=== PATIENT | male | born 1970 | race Caucasian/White ===

== ENCOUNTER → 2023-10-17 06:28 | Outpatient (REF) | payer BC, SELFPAY ==
[2023-10-17 07:20] LABS: % Basophils 0.3 % (0-2); % Eosinophils 1.1 % (0-6); % Immature Granulocytes 0.4 % (0-0.5); % Lymphocytes 17.1 % (20.5-51.1); % Monocytes 7.6 % (1.7-9.3); % Neutrophils 73.5 % (42.2-75.2); Absolute Eosinophils 0.1 10^3/uL (0-0.7); Absolute Lymphocytes 1.6 10^3/uL (1.2-3.4); Absolute Monocytes 0.7 10^3/uL (0.1-0.6); Absolute Neutrophils 6.8 10^3/uL (1.4-6.5); Hematocrit 44.8 % (39.0-52.0); Hemoglobin 15.6 g/dL (13.0-18.0); Mean Corp Hgb Conc. 34.8 g/dL (33.0-37.0); Mean Corpuscular Hgb 29.7 pg (27.0-31.0); Mean Corpuscular Volume 85.3 fL (80.0-94.0); Mean Platelet Volume 8.8 fL (7.4-10.4); Nucleated Red Blood Cells % 0 % (-); Platelet Count 252 10^3/uL (130-400); Red Blood Cell Count 5.25 10^6/uL (4.70-6.10); Red Cell Dist. Width 12.3 % (11.5-14.5); White Blood Cell Count 9.2 10^3/uL (4.8-10.8)
[2023-10-17 07:48] LABS: ALT (SGPT) 44 U/L (0-50); AST (SGOT) 36 U/L (17-59); Albumin 4.7 g/dl (3.5-5.0); Alkaline Phosphatase 57 U/L (38-126); Blood Urea Nitrogen 22 mg/dl (9-20); Calcium 9.8 mg/dl (8.4-10.2); Carbon Dioxide 28 mmol/L (22-30); Chloride 101 mmol/L (98-107); Glucose 106 mg/dl (70-99); HDL Cholesterol 45 mg/dl; LDL Cholesterol, Calculated 122 mg/dl; Magnesium 2.2 mg/dl (1.6-2.3); Potassium 4.2 mmol/L (3.5-5.1); Sodium 135 mmol/L (135-145); Total Bilirubin 1.3 mg/dl (0.2-1.3); Total Cholesterol 214 mg/dl (50-199); Total Protein 7.4 g/dl (6.3-8.2); Triglyceride 235 mg/dl (10-149); Very Low Density Lipoprotein 47 mg/dl (0-30); eGFR > 60.00
[2023-10-17 08:38] LABS: Uric Acid 6.5 mg/dl (3.5-8.5)
[2023-10-17 08:44] LABS: Vitamin B12 718 pg/ml (239-931)
[2023-10-17 08:59] LABS: Glycohemoglobin (HgbA1c) 5.7 % (4.0-5.6)
[2023-10-19 17:26] LABS: Lipoprotein a (Lp a) 14 mg/dL (<=29)
== END ==
LOC: REG 06:28
PROVIDERS: ATTENDING PHYSICIAN Physician Assistant; FAMILY PHYSICIAN Registered Nurse
DX: E78.2 Mixed hyperlipidemia (principal); R73.03 Prediabetes; K21.9 Gastro-esophageal reflux disease without esophagitis; R53.83 Other fatigue; E88.810 Metabolic syndrome; R20.0 Anesthesia of skin; I10 Essential (primary) hypertension
CPT/HCPCS: 36415; 80053; 80061; 82607; 83036; 83695; 83704; 83735; 84443; 84550; 85025

== ENCOUNTER → 2024-11-27 09:11 | Outpatient (REF) | payer BC, SELFPAY ==
[2024-11-27 09:59] LABS: % Basophils 0.4 % (0-2); % Immature Granulocytes 0.4 % (0-0.5); % Monocytes 7.4 % (1.7-9.3); % Neutrophils 70.8 % (42.2-75.2); Absolute Eosinophils 0.1 10^3/uL (0-0.7); Absolute Lymphocytes 1.6 10^3/uL (1.2-3.4); Absolute Monocytes 0.6 10^3/uL (0.1-0.6); Absolute Neutrophils 5.8 10^3/uL (1.4-6.5); Hematocrit 43.7 % (39.0-52.0); Hemoglobin 15.3 g/dL (13.0-18.0); Mean Corpuscular Hgb 29.2 pg (27.0-31.0); Mean Corpuscular Volume 83.4 fL (80.0-94.0); Mean Platelet Volume 8.5 fL (7.4-10.4); Nucleated Red Blood Cells % 0 % (-); Platelet Count 249 10^3/uL (130-400); Red Blood Cell Count 5.24 10^6/uL (4.70-6.10); Red Cell Dist. Width 11.9 % (11.5-14.5); White Blood Cell Count 8.1 10^3/uL (4.8-10.8)
[2024-11-27 10:10] LABS: ALT (SGPT) 37 U/L (0-50); AST (SGOT) 28 U/L (17-59); Albumin 4.7 g/dl (3.5-5.0); Alkaline Phosphatase 48 U/L (38-126); Blood Urea Nitrogen 17 mg/dl (9-20); Carbon Dioxide 28 mmol/L (22-30); Chloride 104 mmol/L (98-107); Glucose 95 mg/dl (70-99); Potassium 4.2 mmol/L (3.5-5.1); Sodium 139 mmol/L (135-145); Total Bilirubin 1.4 mg/dl (0.2-1.3); Total Protein 7.3 g/dl (6.3-8.2); eGFR > 60.00
[2024-11-27 10:37] LABS: TSH Reflex To Free T4 1.91 uIU/ml (0.47-4.68)
[2024-11-27 10:52] LABS: Glycohemoglobin (HgbA1c) 5.4 % (4.0-5.6)
== END ==
LOC: REG 09:11
PROVIDERS: ATTENDING PHYSICIAN Registered Nurse
DX: I10 Essential (primary) hypertension (principal); E66.01 Morbid (severe) obesity due to excess calories
CPT/HCPCS: 36415; 80053; 83036; 84443; 85025

== ENCOUNTER → 2024-12-10 06:29 | Outpatient (REF) | payer BC, SELFPAY ==
[2024-12-10 08:39] LABS: HDL Cholesterol 48 mg/dl; LDL Cholesterol, Calculated 139 mg/dl; Total Cholesterol 238 mg/dl (50-199); Triglyceride 257 mg/dl (10-149); Very Low Density Lipoprotein 51 mg/dl (0-30)
== END ==
LOC: REG 06:29
PROVIDERS: ATTENDING PHYSICIAN Registered Nurse
DX: E78.2 Mixed hyperlipidemia (principal)
CPT/HCPCS: 36415; 80061